=== PATIENT | male | born 1945 | race African-American/Black ===

== ENCOUNTER 2017-12-25 08:12 | Emergency (ER) | payer MEDICARE, MEDICAID ==
[~2017-12-25] VITALS: Ht 172.7 cm; Wt 105.0 kg
[~2017-12-25 08:12] MED LIST: ALBU6.7H3 IH; AMIO100T4 PO; AMLO10TA4 PO; FURO40TA5 PO; HYDR-3511 PO; LOSA50TA3 PO; POTA20TA12 PO; RIVA20TA PO; TRAM50TA3 PO
[2017-12-25 09:00] LABS: BASOPHILS % 1.3 % (0.0-2.0); EOSINOPHILS % 0.3 % (0.0-5.0); HEMATOCRIT. 47.1 % (42.0-52.0); HEMOGLOBIN. 15.1 g/dL (14.0-18.0); LYMPHOCYTES % 15.4 % (20.0-50.0); MEAN CORPUSCULAR HEMOGLOBIN 26.3 pg (28.0-32.0); MEAN CORPUSCULAR VOLUME 82.1 fL (80.0-94.0); MONOCYTES % 7.1 % (2.0-8.0); NEUTROPHILS % 75.9 % (40.0-76.0); PLATELET 188 x1000/uL (130-400); RED BLOOD CELL COUNT 5.74 mill/uL (4.7-6.1); RED CELL DISTRIBUTION WIDTH 17.9 % (11.6-14.6)
[2017-12-25 09:24] LABS: INR 3.8; PROTHROMBIN TIME 39.8 sec (9.4-11.6)
[2017-12-25] MEDS ORDERED: HYDROCODONE/ACETAMINOPHEN 5/325MG TABLET PO ONE (10:15)
[2017-12-25 10:16] VITALS: BP 134/83
== END 2017-12-25 10:35 | disposition home or self-care (01) ==
LOC: ER 08:22
DX: T45.511A Poisoning by anticoagulants, accidental (unintentional), initial encounter (principal); I10 Essential (primary) hypertension; I48.91 Unspecified atrial fibrillation; R79.1 Abnormal coagulation profile; J45.909 Unspecified asthma, uncomplicated; E78.00 Pure hypercholesterolemia, unspecified; I49.9 Cardiac arrhythmia, unspecified; Z79.01 Long term (current) use of anticoagulants; Y92.89 Other specified places as the place of occurrence of the external cause
CPT/HCPCS: 36415; 71045; 80048; 85025; 85610; 85730; 86850; 86900; 93005; 99285

== ENCOUNTER 2018-02-25 11:24 | Day surgery (SDC) | payer MEDICARE, MEDICAID ==
[~2018-02-25] VITALS: Ht 170.2 cm; Wt 101.6 kg
[~2018-02-25 11:24] MED LIST changes: -ALBU6.7H3 IH; +ALBU6.7H9 IH
[2018-02-25] MEDS ORDERED: FENTANYL CITRATE/PF 50MCG/ML 2ML VIAL ONE ×2 (13:10→14:59)
[2018-02-25] MEDS ORDERED: TETRACAINE/BENZOCAINE/BUTAMBEN 20 GM SPRAY MM ONE (13:10)
[2018-02-25] MEDS ORDERED: LIDOCAINE HCL 2% JELLY 5ML ONE (13:10)
[2018-02-25] MEDS ORDERED: MIDAZOLAM HCL 5 MG/5 ML VIAL ONE (13:10)
[2018-02-25] MEDS ORDERED: FAMO20TA8 PO (13:49)
[2018-02-25] MEDS ORDERED: CHOL40002 PO (13:49)
[2018-02-25] MEDS ORDERED: FERR325T6 PO (13:49)
[2018-02-25] MEDS ORDERED: HYDR-4001 PO (13:49)
[2018-02-25] MEDS ORDERED: CLON0.1T PO (13:49)
[2018-02-25] MEDS ORDERED: FOLI-43 PO (13:49)
[2018-02-25] MEDS ORDERED: METO2.5T14 PO (13:49)
[2018-04-24] MEDS ORDERED: BENA20TA10 PO (10:14)
== END 2018-02-25 17:40 | disposition home or self-care (01) ==
LOC: CARD 11:24
PROVIDERS: ATTEND Specialist
DX: I48.91 Unspecified atrial fibrillation (principal); I13.10 Hypertensive heart and chronic kidney disease without heart failure, with stage 1 through stage 4 chronic kidney disease, or unspecified chronic kidney disease; N18.9 Chronic kidney disease, unspecified; E66.9 Obesity, unspecified; J45.909 Unspecified asthma, uncomplicated; Z68.35 Body mass index [BMI] 35.0-35.9, adult; Z79.01 Long term (current) use of anticoagulants; E78.00 Pure hypercholesterolemia, unspecified; Z79.899 Other long term (current) drug therapy
CPT/HCPCS: 92960; 93005; 93312; J2250; J3010; 99152; 99153

== ENCOUNTER 2022-07-18 21:38 | Emergency (ER) | payer MEDICARE, MEDICAID ==
[~2022-07-18] VITALS: Ht 170.2 cm; Wt 75.0 kg
[~2022-07-18 21:38] MED LIST changes: -ALBU6.7H9 IH; -AMIO100T4 PO; -AMLO10TA4 PO; +BENA-8 PO; +FAMO20TA8 PO; -HYDR-3511 PO; +HYDR-4001 PO; -POTA20TA12 PO
[2022-07-18] MEDS ORDERED: HYDROCODONE/ACETAMINOPHEN 5/325MG TABLET PO ONE (22:30)
[2022-07-19] MEDS ORDERED: HYDR-4001 MT (06:04)
[2022-07-19] MEDS ORDERED: DICL100G31 TP (06:04)
[2022-07-19 07:00] VITALS: BP 120/75
== END 2022-07-19 07:20 | disposition home or self-care (01) ==
LOC: ER 21:38
DX: M25.461 Effusion, right knee (principal); M25.561 Pain in right knee; M17.11 Unilateral primary osteoarthritis, right knee; E78.00 Pure hypercholesterolemia, unspecified; I10 Essential (primary) hypertension
CPT/HCPCS: 73562; 76881; 93971; 99284